=== PATIENT | male | born 1950 | race Caucasian/White ===

== ENCOUNTER → 2019-06-30 10:46 | Outpatient (CLI) | payer MEDICARE, BC, SELFPAY | PROVIDERS: Visit Provider Family Medicine | DX: N43.2 Other hydrocele (principal) ==

== ENCOUNTER → 2019-08-02 10:21 | Outpatient (CLI) | payer MEDICARE, BC, SELFPAY ==
--- NOTE | 2019-08-02 | DI.US.S_ITS ---
PROCEDURE: US SCROTUM INDICATIONS: HYDROCELE TECHNIQUE: Real-time scanning was performed of the scrotum and testicles, with image documentation. Color and pulse Doppler interrogation was performed of both testicles. COMPARISON: None. FINDINGS: Right: Testicle is normal in size at 3.2 x 3.3 x 4.1 cm, and homogenous in echotexture. Epididymis is normal in overall size and morphology. No hydrocele or varicoceles. Overlying scrotal skin is normal in thickness. Left: Testicle is normal in size at 2.9 x 3.2 x 4.2 cm, and homogeneous in echotexture. Epididymis is normal in overall size and morphology but shows a small degree of heterogeneity with a minimally complex 5 x 5 x 9 mm cyst on the left. No hydrocele or varicoceles. Overlying scrotal skin is normal in thickness. Doppler: Color and pulse Doppler demonstrate normal and symmetric arterial flow in both testicles. IMPRESSION: No hydrocele found. Minimal complexity to the left epididymal echotexture where a 5 x 5 x 9 mm small cyst can be seen. No underlying active infection or underlying neoplasm is suspected. Dictated by: Devendra Patino M.D. on 08/02/2019 at 14:30 Approved by: Devendra Patino M.D. on 08/02/2019 at 14:32
== END ==
PROVIDERS: PCP Family Medicine; Visit Provider Physician Assistant
DX: N50.3 Cyst of epididymis (principal)
CPT/HCPCS: 76870

== ENCOUNTER → 2022-05-09 09:10 | Outpatient (CLI) | payer MEDICARE, BC, SELFPAY ==
[2022-05-09 19:38] LABS: INR 1.2 (0.9-1.3); Prothrombin Time 13.5 SECONDS (10.1-12.7)
[2022-05-09 19:48] LABS: Alanine Aminotransferase 32 IU/L (<50); Albumin 4.3 g/dL (3.5-5.0); Albumin Globulin Ratio 1.5 (1.0-2.8); Alkaline Phosphatase 86 U/L (38-126); Aspartate Aminotransferase 30 IU/L (17-59); BUN Creatinine Ratio 12.9 (6-22); Bilirubin Total 1.2 mg/dL (0.2-1.3); Blood Urea Nitrogen 13 mg/dL (9-20); Carbon Dioxide 29 mmol/L (22-32); Chloride 102 mmol/L (98-107); Estimated Glomerular Filt Rate > 60 mL/min (>60); Globulin 2.8 g/dL (1.7-4.1); Glucose 100 mg/dL (80-110); HEMOLYSIS < 15 (0-50); Potassium 3.9 mmol/L (3.4-5.1); Sodium 139 mmol/L (137-145); Total Protein 7.1 g/dL (6.3-8.2)
[2022-05-09 19:50] LABS: Hemoglobin A1C% w Est Avg Glu 5.1 % (4.0-6.0)
[2022-05-09 19:55] LABS: Add Manual Diff / Slide Review NO; Basophils Absolute Auto 0 /uL (0-100); Basophils Percent Auto 0.6 % (0-2); Eosinophils Absolute Auto 100 /uL (0-450); Eosinophils Percent Auto 2.6 % (2-4); Hematocrit 47.8 % (41-53); Hemoglobin 16.7 g/dL (13.5-17.5); Lymphocytes Absolute Auto 900 /uL (1100-4500); Lymphocytes Percent Auto 17.4 % (25-40); Mean Corpuscular HGB Conc 34.9 % (30-36); Mean Corpuscular Hemoglobin 30.6 PG (26-34); Mean Corpuscular Volume 87.6 fL (80-100); Monocytes Absolute Auto 400 /uL (0-900); Monocytes Percent Auto 7.9 % (3-14); Neutrophils Absolute Auto 3600 /uL (1500-7000); Neutrophils Percent Auto 71.5 % (50-75); Platelet Count 179 X10^3/uL (150-400); Red Blood Cell Count 5.46 X10^6/uL (4.5-5.9)
[2022-05-09 21:00] LABS: Bacteria Urine None Seen; Culture Indicated Urine Cult Not Indicated; RBC Urine None Seen (0-5/HPF); Squamous Epithelial Cell Urine None Seen (0-5/HPF); WBC Urine None Seen (0-5/HPF)
[2022-05-09 21:16] LABS: Appearance Urine UA CLEAR; Bilirubin Urine UA NEGATIVE (NEGATIVE); Color Urine UA YELLOW; Glucose Urine UA NEGATIVE (Negative); Ketones Urine UA 1+ (NEGATIVE); Leukocyte Esterase Urine UA NEGATIVE (NEGATIVE); Nitrite Urine UA NEGATIVE (Negative); Occult Blood Urine UA TRACE-LYSED (Negative); Protein Urine UA 1+ (Negative); Specific Gravity Urine UA 1.015 (1.000-1.035); Urobilinogen Urine UA 0.2 E.U./dL (0.2); pH Urine UA 6.5 (4.5-8.0)
[2022-05-19 14:30] LABS: 1,25-Dihydroxy, Vitamin D-2 <10 pg/mL (.)
== END ==
PROVIDERS: PCP Family Medicine
DX: M17.11 Unilateral primary osteoarthritis, right knee (principal); R03.0 Elevated blood-pressure reading, without diagnosis of hypertension; M21.161 Varus deformity, not elsewhere classified, right knee
CPT/HCPCS: 80053; 81001; 82652; 83036; 85025; 85610

== ENCOUNTER → 2022-09-09 13:06 | Outpatient (CLI) | payer MEDICARE, BC, SELFPAY | PROVIDERS: PCP Family Medicine; Visit Provider Family Medicine | DX: Z12.5 Encounter for screening for malignant neoplasm of prostate (principal) | CPT/HCPCS: G0103 ==

== ENCOUNTER → 2022-10-18 15:20 | Outpatient (CLI) | payer MEDICARE, BC, SELFPAY ==
--- NOTE | 2022-10-18 15:21 | DI.MRI.S_ITS ---
PROCEDURE: MR PELIS WO/W CON INDICATIONS: Benign prostatic hyperplasia with lower urinary tract sympto TECHNIQUE: Coronal HASTE, axial T1 FSE with fat saturation, 3-plane nonbreath-hold T2 FSE. After the administration of contrast, dynamic axial, delayed axial and coronal VIBE or 2-D FLASH with fat saturation through the pelvis. Optional diffusion weighted imaging and ADC may be performed. COMPARISON: None. FINDINGS: Image quality: Diffusion weighted and dynamic contrast enhanced images are diagnostic. Prostate: Gland size is 6.0 x 7.5 x 6.5 cm; ellipsoid gland volume is 152 mL. No PI-RADS 3 through 5 lesions. Genitourinary system: Bladder wall thickness is normal. Distal ureters are non distended. Bowel and peritoneum: No pathologic free pelvic fluid. Inferior colon and small bowel loops are normal in caliber. Nodes and vessels: No pelvic or inguinal adenopathy by size criteria. Iliac vessels are normal in caliber. Soft tissues: No inguinal hernias. Bones: Marrow demonstrates normal overall signal, without lesions to suggest metastases. IMPRESSION: Prostatomegaly. No PI-RADS 3 through 5 lesions. Dictated by: Kt Quijano M.D. on 10/21/2022 at 8:10 Approved by: Kt Quijano M.D. on 10/21/2022 at 8:15
== END ==
PROVIDERS: PCP Family Medicine; Referring Provider Specialist; Visit Provider Specialist
DX: N40.1 Benign prostatic hyperplasia with lower urinary tract symptoms (principal); N13.8 Other obstructive and reflux uropathy
CPT/HCPCS: 72197; A9579

== ENCOUNTER → 2024-01-05 13:33 | Outpatient (CLI) | payer MEDICARE, BC, SELFPAY ==
[2024-01-05 20:39] LABS: Prostate Specific Antigen 6.05 ng/mL (0.10-4.00)
== END ==
PROVIDERS: PCP Family Medicine; Visit Provider Specialist
DX: R97.20 Elevated prostate specific antigen [PSA] (principal); N40.1 Benign prostatic hyperplasia with lower urinary tract symptoms; N13.8 Other obstructive and reflux uropathy
CPT/HCPCS: 84153